=== PATIENT | male | born 1975 | race Caucasian/White ===

== ENCOUNTER 2019-03-12 07:22 | Inpatient (IN) | payer OTHER ==
[~2019-03-12] VITALS: Ht 177.8 cm; Wt 77.4 kg
--- NOTE | 2019-03-12 07:48 | NUR ---
PT HERE FOR SOB AND LEFT CHEST WALL PAIN. IV ACCESS OBTAINED. NS BOLUS INITIATED, CARDIAC, NIBP, AND O2 MONITORING IN PLACE. PT PLACED ON 2 LPM O2 VIA NC FOR RA OF 89%
[2019-03-12] MEDS ORDERED: SODIUM CHLORIDE 0.9% 1,000ML IVBOLUS ONE (08:00)
[2019-03-12] MEDS ORDERED: SODIUM CHLORIDE FLUSH 10ML SYR IVF ONE (08:00)
[2019-03-12] MEDS ORDERED: KETOROLAC 60 MG/2 ML ONE ×2 (08:07→10:22)
[2019-03-12] MEDS ORDERED: CEFTRIAXONE PMX 1GM/50ML 50 ML ONE (08:18)
[2019-03-12 08:21] LABS: RAPID INFLUENZA A Negative (Negative); RAPID INFLUENZA B Negative (Negative)
[2019-03-12] MEDS ORDERED: CEFTRIAXONE PMX 1GM/50ML 50 ML IVPB ONE (08:30)
[2019-03-12] MEDS ORDERED: AZITHROMYCIN 500 MG in SODIUM CHLORIDE 0.9% 250 ML IVPB ONE (08:30)
[2019-03-12] MEDS ORDERED: KETOROLAC 30 MG/1 ML IVPush ONE (08:30)
[2019-03-12 08:53] LABS: MEAN CORPUSCULAR HEMOGLOBIN 31.9 pg (27.5-34.5); MEAN CORPUSCULAR HGB CONC 32.9 g/dL (33.2-36.2); MEAN CORPUSCULAR VOLUME 96.8 fL (81-97); MEAN PLATELET VOLUME 8.3 fL (7.4-10.4); PLATELET COUNT 276 x10^3/uL (130-400); RED BLOOD COUNT 4.89 x10^6/uL (4.38-5.82); RED CELL DISTRIBUTION WIDTH 13.5 % (9.4-14.8)
[2019-03-12 09:00] LABS: ALANINE AMINOTRANSFERASE 31 U/L (12-78); ALBUMIN 2.6 g/dL (3.4-5.0); ANION GAP 9 mmol/L (5-15); CALCIUM 8.7 mg/dL (8.5-10.1); CHLORIDE 102 mmol/L (98-107); CREATININE 1.05 mg/dL (0.7-1.3)
[2019-03-12 09:05] LABS: ALKALINE PHOSPHATASE 100 U/L (45-117); TOTAL PROTEIN 7.4 g/dL (6.4-8.2)
[2019-03-12 09:08] LABS: TROPONIN I 0.839 ng/mL (0.000-0.045)
--- NOTE | 2019-03-12 09:08 | NUR ---
LAB CALLED HIGH TROP OF 0.839 PROVIDER MADE AWARE.
[2019-03-12 09:28] LABS: MD YES
[2019-03-12 09:30] LABS: LYMPH#(MANUAL) 0.68 x10^3/uL (1-3.4); LYMPHS% (MANUAL) 4 % (22-44); MONOS#(MANUAL) 0.51 x10^3/uL (0.3-2.7); MONOS% (MANUAL) 3 % (2-9)
[2019-03-12 09:33] LABS: BAND#(MANUAL) 5.78 x10^3/uL; BANDS%(MANUAL) 34 % (0-7); SEGS% (MANUAL) 59 % (42-75)
[2019-03-12 09:39] LABS: <PLATELET ESTIMATE> ADEQUATE; <PLT MORPHOLOGY> NORMAL PLT MORPH; <RBC MORPHOLOGY> NORMAL; TOXIC GRAN 1+
[2019-03-12] MEDS ORDERED: SODIUM CHLORIDE 0.9% 1,000 ML IV SCH (09:45)
[2019-03-12] MEDS ORDERED: TEMAZEPAM 15 MG CAPSULE PO PRN (10:00)
[2019-03-12] MEDS ORDERED: HYDROcodone/APAP 5/325 TABLET PO PRN (10:00)
[2019-03-12] MEDS ORDERED: ACETAMINOPHEN 325 MG TABLET PO PRN (10:00)
[2019-03-12] MEDS ORDERED: ONDANSETRON 2MG/ML, 2ML IVPush PRN (10:00)
[2019-03-12] MEDS ORDERED: AZITHROMYCIN 500 MG in SODIUM CHLORIDE 0.9% 250 ML IV SCH (10:00)
[2019-03-12] MEDS ORDERED: SODIUM CHLORIDE FLUSH 10ML SYR IVF PRN (10:00)
[2019-03-12] MEDS ORDERED: hydrALAzine 20 MG/ML, 1ML IVPush PRN (10:00)
[2019-03-12] MEDS ORDERED: ENOXAPARIN 40 MG/0.4 ML SQ SCH (10:00)
[2019-03-12] MEDS: KETOROLAC 30 MG/1 ML IV SCH ×3 (10:38→22:45)
--- NOTE | 2019-03-12 11:57 | NUR ---
PT TRANSFERING TO FLOOR.
[2019-03-12 12:43] VITALS: BP 141/91
[2019-03-12] MEDS ORDERED: DIGOXIN 0.25 MG/ML, 2ML IVPush ONE ×3 (13:00→22:30)
[2019-03-12] MEDS: GUAIFENESIN 200 MG TABLET PO SCH ×3 (13:47→20:36)
[2019-03-12 14:37] LABS: TROPONIN I 0.813 ng/mL (0.000-0.045)
[2019-03-12 19:55] LABS: AMPHETAMINE SCREEN, URINE Negative (Negative); BARBITURATE SCREEN, URINE Negative (Negative); BENZODIAZEPINE SCREEN, URINE Negative (Negative); CANNABINOID SCREEN, URINE Negative (Negative); COCAINE SCREEN, URINE Negative (Negative); METHADONE SCREEN, URINE Negative (Negative); OPIATE SCREEN, URINE Negative (Negative)
[2019-03-12 20:02] LABS: TROPONIN I 0.816 ng/mL (0.000-0.045)
[2019-03-12 21:46] VITALS: BP 164/96
[2019-03-13] MEDS ORDERED: OMNIPAQUE 350 MG/ML, 100ML BOTTLE ONE (00:03)
[2019-03-13 00:29] VITALS: BP 122/75
[2019-03-13] MEDS: KETOROLAC 30 MG/1 ML IV SCH (04:22)
[2019-03-13] MEDS ORDERED: KETOROLAC 30 MG/1 ML IV PRN (05:00)
[2019-03-13 06:55] LABS: MEAN CORPUSCULAR HEMOGLOBIN 32.4 pg (27.5-34.5); MEAN CORPUSCULAR HGB CONC 32.8 g/dL (33.2-36.2); MEAN CORPUSCULAR VOLUME 98.9 fL (81-97); PLATELET COUNT 278 x10^3/uL (130-400); RED BLOOD COUNT 4.77 x10^6/uL (4.38-5.82)
[2019-03-13 07:07] LABS: ALANINE AMINOTRANSFERASE 22 U/L (12-78); ANION GAP 8 mmol/L (5-15); CALCIUM 8.7 mg/dL (8.5-10.1); CHLORIDE 106 mmol/L (98-107); CREATININE 0.92 mg/dL (0.7-1.3)
[2019-03-13 07:25] LABS: ALKALINE PHOSPHATASE 70 U/L (45-117); BILIRUBIN,TOTAL 0.8 mg/dL (0.2-1.0)
[2019-03-13 07:36] LABS: MD YES
[2019-03-13 07:39] LABS: <PLATELET ESTIMATE> ADEQUATE; <PLT MORPHOLOGY> NORMAL PLT MORPH; <RBC MORPHOLOGY> NORMAL; BAND#(MANUAL) 9.61 x10^3/uL; BANDS%(MANUAL) 36 % (0-7); EOS#(MANUAL) 0.27 x10^3/uL (0.0-0.4); EOS% (MANUAL) 1 % (1-7); LYMPH#(MANUAL) 0.53 x10^3/uL (1-3.4); LYMPHS% (MANUAL) 2 % (22-44); METAMYELOCYTES# (MANUAL) 1.07 x10^3/uL (0-0); METAMYELOCYTES% (MANUAL) 4 % (0-1); MONOS#(MANUAL) 0.27 x10^3/uL (0.3-2.7); MONOS% (MANUAL) 1 % (2-9); SEG#(MANUAL) 14.95 x10^3/uL (1.8-6.8); SEGS% (MANUAL) 56 % (42-75); TOXIC GRAN 1+
[2019-03-13 07:40] VITALS: BP 138/80
[2019-03-13] MEDS: CEFTRIAXONE PMX 2GM/50ML 50 ML IV SCH (09:37)
[2019-03-13] MEDS: GUAIFENESIN 200 MG TABLET PO SCH ×3 (09:37→20:29)
[2019-03-13] MEDS ORDERED: SODIUM CHLORIDE 0.9% 1,000 ML IV SCH (09:45)
[2019-03-13] MEDS ORDERED: HEPARIN 5,000 UNITS/ML, 1ML IV ONE (10:30)
[2019-03-13] MEDS: ALBUTEROL SULFATE 2.5 MG/3 ML NPPB PRN (11:45)
[2019-03-13] MEDS: ACETAMINOPHEN 325 MG TABLET PO PRN ×3 (12:05→23:30)
[2019-03-13] MEDS: HEPARIN 25,000 UNITS/500ML PMX 500 ML IV PRN (12:55)
[2019-03-13 15:36] VITALS: BP 144/85
[2019-03-13 18:27] VITALS: BP 150/102
[2019-03-13] MEDS: CARVEDILOL 6.25 MG TABLET PO SCH (18:30)
[2019-03-13 19:57] VITALS: BP 156/95
[2019-03-13] MEDS: ATORVASTATIN 40 MG TABLET PO SCH (20:29)
[2019-03-13] MEDS: HEPARIN 5,000 UNITS/ML, 1ML IV PRN (20:29)
[2019-03-13 20:42] VITALS: BP 163/98
[2019-03-14 02:33] VITALS: BP 158/98
[2019-03-14 02:52] LABS: MEAN CORPUSCULAR HEMOGLOBIN 32.7 pg (27.5-34.5); MEAN CORPUSCULAR HGB CONC 33.3 g/dL (33.2-36.2); MEAN CORPUSCULAR VOLUME 98.2 fL (81-97); MEAN PLATELET VOLUME 8.4 fL (7.4-10.4); PLATELET COUNT 291 x10^3/uL (130-400); RED BLOOD COUNT 4.55 x10^6/uL (4.38-5.82); RED CELL DISTRIBUTION WIDTH 13.9 % (9.4-14.8)
[2019-03-14 02:59] LABS: MD YES
[2019-03-14 03:01] LABS: ANION GAP 8 mmol/L (5-15); CALCIUM 8.8 mg/dL (8.5-10.1); CHLORIDE 105 mmol/L (98-107)
[2019-03-14 03:04] LABS: TROPONIN I 0.324 ng/mL (0.000-0.045)
[2019-03-14 03:04] LABS: <PLATELET ESTIMATE> ADEQUATE; <PLT MORPHOLOGY> NORMAL PLT MORPH; <RBC MORPHOLOGY> NORMAL; BAND#(MANUAL) 5.46 x10^3/uL; BANDS%(MANUAL) 15 % (0-7); LYMPH#(MANUAL) 1.09 x10^3/uL (1-3.4); LYMPHS% (MANUAL) 3 % (22-44); METAMYELOCYTES# (MANUAL) 0.73 x10^3/uL (0-0); METAMYELOCYTES% (MANUAL) 2 % (0-1); MONOS#(MANUAL) 1.09 x10^3/uL (0.3-2.7); MONOS% (MANUAL) 3 % (2-9); SEG#(MANUAL) 28.03 x10^3/uL (1.8-6.8); SEGS% (MANUAL) 77 % (42-75)
[2019-03-14 03:05] LABS: PMNS WITH VACUOLES 1+; TOXIC GRAN 1+
[2019-03-14] MEDS: HEPARIN 5,000 UNITS/ML, 1ML IV PRN ×3 (03:13→19:14)
[2019-03-14] MEDS: CARVEDILOL 6.25 MG TABLET PO SCH ×2 (05:26→17:21)
[2019-03-14] MEDS ORDERED: ASPIRIN 325 MG TABLET PO SCH (06:00)
[2019-03-14 07:26] VITALS: BP 135/80
[2019-03-14] MEDS: CEFTRIAXONE PMX 2GM/50ML 50 ML IV SCH (09:22)
[2019-03-14] MEDS: GUAIFENESIN 200 MG TABLET PO SCH ×3 (09:22→20:01)
[2019-03-14] MEDS: SODIUM CHLORIDE 0.9% 1,000 ML IV SCH (09:27)
[2019-03-14] MEDS ORDERED: SODIUM CHLORIDE 0.9% 1,000 ML IV SCH (09:45)
[2019-03-14] MEDS ORDERED: VANCOMYCIN PER PHARMACY MC PRN (11:30)
[2019-03-14] MEDS ORDERED: PHARMACOKINETIC CONSULTATION MC ONE (12:00)
[2019-03-14] MEDS ORDERED: PHARMACOKINETIC MONITORING MC PRN (12:00)
[2019-03-14 12:25] VITALS: BP 123/78
[2019-03-14] MEDS: VANCOMYCIN 1,500 MG in SODIUM CHLORIDE 0.9% 250 ML IV SCH (12:53)
[2019-03-14] MEDS: ACETAMINOPHEN 325 MG TABLET PO PRN (12:53)
[2019-03-14] MEDS: ALBUTEROL SULFATE 2.5 MG/3 ML NPPB PRN (13:11)
[2019-03-14] MEDS: HEPARIN 25,000 UNITS/500ML PMX 500 ML IV PRN (13:14)
[2019-03-14] MEDS ORDERED: DIGOXIN 0.25 MG TABLET PO SCH (13:30)
[2019-03-14 14:28] VITALS: BP 110/75
[2019-03-14] MEDS ORDERED: LIDOCAINE 1%, 10ML ONE (15:12)
[2019-03-14] MEDS: ATORVASTATIN 40 MG TABLET PO SCH (20:01)
[2019-03-14 20:55] VITALS: BP 159/95
[2019-03-14] MEDS ORDERED: AZITHROMYCIN 500 MG TABLET PO ONE (23:00)
[2019-03-15] MEDS: VANCOMYCIN 1,500 MG in SODIUM CHLORIDE 0.9% 250 ML IV SCH ×2 (00:47→13:34)
[2019-03-15 00:51] VITALS: BP 147/84
[2019-03-15] MEDS: CARVEDILOL 6.25 MG TABLET PO SCH ×2 (05:02→17:35)
[2019-03-15] MEDS: SODIUM CHLORIDE 0.9% 1,000 ML IV SCH (05:02)
[2019-03-15 05:32] LABS: MEAN CORPUSCULAR HEMOGLOBIN 32.1 pg (27.5-34.5); MEAN CORPUSCULAR HGB CONC 33.1 g/dL (33.2-36.2); MEAN CORPUSCULAR VOLUME 97.2 fL (81-97); MEAN PLATELET VOLUME 8.9 fL (7.4-10.4); PLATELET COUNT 348 x10^3/uL (130-400); RED BLOOD COUNT 4.48 x10^6/uL (4.38-5.82); RED CELL DISTRIBUTION WIDTH 14.4 % (9.4-14.8)
[2019-03-15 06:07] LABS: MD YES
[2019-03-15 06:09] LABS: BAND#(MANUAL) 1.38 x10^3/uL; BANDS%(MANUAL) 5 % (0-7); LYMPHS% (MANUAL) 8 % (22-44); MONOS#(MANUAL) 0.55 x10^3/uL (0.3-2.7); MONOS% (MANUAL) 2 % (2-9); MYELOCYTES# (MANUAL) 0.28 x10^3/uL (0-0); MYELOCYTES% (MANUAL) 1 % (0-0); SEGS% (MANUAL) 84 % (42-75)
[2019-03-15 06:10] LABS: <PLATELET ESTIMATE> ADEQUATE; <PLT MORPHOLOGY> NORMAL PLT MORPH; <RBC MORPHOLOGY> NORMAL
[2019-03-15] MEDS ORDERED: FUROSEMIDE 20 MG/2 ML IV ONE (07:00)
[2019-03-15 07:05] VITALS: BP 109/68
[2019-03-15 07:38] LABS: TROPONIN I 0.071 ng/mL (0.000-0.045)
[2019-03-15] MEDS: CEFTRIAXONE PMX 2GM/50ML 50 ML IV SCH (07:40)
[2019-03-15] MEDS ORDERED: LIDOCAINE 1%, 10ML ONE (08:52)
[2019-03-15] MEDS: GUAIFENESIN 200 MG TABLET PO SCH ×3 (09:44→20:17)
[2019-03-15 12:44] VITALS: BP 114/73
[2019-03-15] MEDS ORDERED: HEPARIN 5,000 UNITS/ML, 1ML IV ONE (15:30)
[2019-03-15] MEDS: AZITHROMYCIN 250 MG TABLET PO SCH (18:00)
[2019-03-15 19:51] VITALS: BP 121/68
[2019-03-15] MEDS: ATORVASTATIN 40 MG TABLET PO SCH (20:16)
[2019-03-15] MEDS: HEPARIN 5,000 UNITS/ML, 1ML IV PRN (23:05)
[2019-03-16 01:27] VITALS: BP 113/65
[2019-03-16] MEDS: VANCOMYCIN 1,500 MG in SODIUM CHLORIDE 0.9% 250 ML IV SCH (01:47)
[2019-03-16] MEDS: HEPARIN 25,000 UNITS/500ML PMX 500 ML IV PRN ×2 (01:50→12:51)
[2019-03-16 05:25] LABS: MEAN CORPUSCULAR HEMOGLOBIN 32.4 pg (27.5-34.5); MEAN CORPUSCULAR HGB CONC 33.1 g/dL (33.2-36.2); MEAN PLATELET VOLUME 8.8 fL (7.4-10.4); PLATELET COUNT 369 x10^3/uL (130-400); RED BLOOD COUNT 4.15 x10^6/uL (4.38-5.82); RED CELL DISTRIBUTION WIDTH 14.4 % (9.4-14.8)
[2019-03-16 05:55] VITALS: BP 107/63
[2019-03-16] MEDS: CARVEDILOL 6.25 MG TABLET PO SCH ×2 (05:55→17:31)
[2019-03-16] MEDS: HEPARIN 5,000 UNITS/ML, 1ML IV PRN ×3 (05:55→21:00)
[2019-03-16 06:11] LABS: MD YES
[2019-03-16 06:12] LABS: BAND#(MANUAL) 0.44 x10^3/uL; BANDS%(MANUAL) 2 % (0-7); LYMPH#(MANUAL) 1.55 x10^3/uL (1-3.4); LYMPHS% (MANUAL) 7 % (22-44); MONOS#(MANUAL) 0.66 x10^3/uL (0.3-2.7); MONOS% (MANUAL) 3 % (2-9); SEG#(MANUAL) 19.45 x10^3/uL (1.8-6.8); SEGS% (MANUAL) 88 % (42-75)
[2019-03-16 06:13] LABS: <RBC MORPHOLOGY> NORMAL; PMNS WITH VACUOLES 1+; TOXIC GRAN 1+
[2019-03-16 06:14] LABS: <PLATELET ESTIMATE> ADEQUATE; <PLT MORPHOLOGY> NORMAL PLT MORPH
[2019-03-16 07:10] VITALS: BP 101/61
[2019-03-16] MEDS: GUAIFENESIN 200 MG TABLET PO SCH ×3 (09:04→21:01)
[2019-03-16] MEDS: AZITHROMYCIN 250 MG TABLET PO SCH (09:04)
[2019-03-16] MEDS: CEFTRIAXONE PMX 2GM/50ML 50 ML IV SCH (09:04)
[2019-03-16 12:09] VITALS: BP 120/79
[2019-03-16 19:05] VITALS: BP 118/72
[2019-03-16] MEDS: ATORVASTATIN 40 MG TABLET PO SCH (21:00)
[2019-03-17] VITALS: BP 124/78
[2019-03-17 05:18] VITALS: BP 109/63
[2019-03-17] MEDS: CARVEDILOL 6.25 MG TABLET PO SCH ×2 (05:20→17:18)
[2019-03-17 06:14] LABS: INTERNATIONAL NORMALIZED RATIO 1.11 (0.93-1.1); PROTHROMBIN TIME 11.6 Seconds (9.6-11.5)
[2019-03-17 06:26] LABS: MEAN CORPUSCULAR HEMOGLOBIN 32.8 pg (27.5-34.5); MEAN CORPUSCULAR HGB CONC 33.4 g/dL (33.2-36.2); MEAN CORPUSCULAR VOLUME 98.1 fL (81-97); MEAN PLATELET VOLUME 9.1 fL (7.4-10.4); PLATELET COUNT 467 x10^3/uL (130-400); RED BLOOD COUNT 4.09 x10^6/uL (4.38-5.82); RED CELL DISTRIBUTION WIDTH 14.5 % (9.4-14.8)
[2019-03-17 07:03] LABS: MD YES
[2019-03-17 07:04] LABS: BAND#(MANUAL) 1.03 x10^3/uL; BANDS%(MANUAL) 4 % (0-7); EOS#(MANUAL) 0.26 x10^3/uL (0.0-0.4); EOS% (MANUAL) 1 % (1-7); LYMPH#(MANUAL) 1.03 x10^3/uL (1-3.4); LYMPHS% (MANUAL) 4 % (22-44); MONOS#(MANUAL) 1.81 x10^3/uL (0.3-2.7); MONOS% (MANUAL) 7 % (2-9); SEG#(MANUAL) 21.67 x10^3/uL (1.8-6.8); SEGS% (MANUAL) 84 % (42-75)
[2019-03-17 07:05] LABS: <PLATELET ESTIMATE> INCREASED; <PLT MORPHOLOGY> NORMAL PLT MORPH; <RBC MORPHOLOGY> NORMAL; PMNS WITH VACUOLES 1+; TOXIC GRAN 1+
[2019-03-17 07:18] VITALS: BP 107/62
[2019-03-17] MEDS: GUAIFENESIN 200 MG TABLET PO SCH ×3 (07:44→19:53)
[2019-03-17] MEDS: AZITHROMYCIN 250 MG TABLET PO SCH (07:44)
[2019-03-17] MEDS: CEFTRIAXONE PMX 2GM/50ML 50 ML IV SCH (07:44)
[2019-03-17] MEDS ORDERED: LIDOCAINE GEL 2%, 5ML ONE (08:00)
[2019-03-17] MEDS ORDERED: BENZOCAINE 20% SPRAY 0.5ML ONE (08:00)
[2019-03-17] MEDS ORDERED: LIDOCAINE 2%, 20ML ONE (08:00)
[2019-03-17] MEDS ORDERED: MIDAZOLAM 1 MG/ML, 5ML ONE (13:04)
[2019-03-17] MEDS ORDERED: FENTANYL PF 100 MCG/2ML ONE (13:04)
[2019-03-17 14:51] VITALS: BP 125/72
[2019-03-17 17:16] VITALS: BP 109/66
[2019-03-17 19:15] VITALS: BP 108/67
[2019-03-17] MEDS: ATORVASTATIN 40 MG TABLET PO SCH (19:54)
[2019-03-17] MEDS: ACETAMINOPHEN 325 MG TABLET PO PRN (19:54)
[2019-03-18 01:23] VITALS: BP 100/61
[2019-03-18] MEDS: CARVEDILOL 6.25 MG TABLET PO SCH ×2 (05:52→18:07)
[2019-03-18 06:11] LABS: MEAN CORPUSCULAR HGB CONC 32.3 g/dL (33.2-36.2); MEAN CORPUSCULAR VOLUME 99.3 fL (81-97); PLATELET COUNT 460 x10^3/uL (130-400); RED CELL DISTRIBUTION WIDTH 14.7 % (9.4-14.8)
[2019-03-18 06:26] LABS: ANION GAP 5 mmol/L (5-15); CALCIUM 8.1 mg/dL (8.5-10.1); CHLORIDE 99 mmol/L (98-107)
[2019-03-18 06:28] LABS: CREATININE 0.76 mg/dL (0.7-1.3)
[2019-03-18 07:03] LABS: MD YES
[2019-03-18 07:04] LABS: BAND#(MANUAL) 0.53 x10^3/uL; BANDS%(MANUAL) 2 % (0-7); EOS#(MANUAL) 0.26 x10^3/uL (0.0-0.4); EOS% (MANUAL) 1 % (1-7); LYMPH#(MANUAL) 1.06 x10^3/uL (1-3.4); LYMPHS% (MANUAL) 4 % (22-44); METAMYELOCYTES# (MANUAL) 0.26 x10^3/uL (0-0); METAMYELOCYTES% (MANUAL) 1 % (0-1); MONOS#(MANUAL) 1.32 x10^3/uL (0.3-2.7); MONOS% (MANUAL) 5 % (2-9); MYELOCYTES# (MANUAL) 0.53 x10^3/uL (0-0); MYELOCYTES% (MANUAL) 2 % (0-0); SEG#(MANUAL) 22.44 x10^3/uL (1.8-6.8); SEGS% (MANUAL) 85 % (42-75)
[2019-03-18 07:05] LABS: <PLATELET ESTIMATE> INCREASED; <PLT MORPHOLOGY> NORMAL PLT MORPH; POLYCHROMASIA 1+
[2019-03-18 08:00] VITALS: BP 122/77
[2019-03-18] MEDS: GUAIFENESIN 200 MG TABLET PO SCH ×3 (08:21→21:06)
[2019-03-18] MEDS: CEFTRIAXONE PMX 2GM/50ML 50 ML IV SCH (08:21)
[2019-03-18] MEDS: AZITHROMYCIN 250 MG TABLET PO SCH (08:21)
[2019-03-18 14:57] VITALS: BP 115/66
[2019-03-18] MEDS: ACETAMINOPHEN 325 MG TABLET PO PRN (15:10)
[2019-03-18 19:45] VITALS: BP 118/72
[2019-03-18] MEDS ORDERED: HEPARIN 5,000 UNITS/ML, 1ML IV ONE (21:00)
[2019-03-18] MEDS: HEPARIN 25,000 UNITS/500ML PMX 500 ML IV PRN (21:04)
[2019-03-18] MEDS: ATORVASTATIN 40 MG TABLET PO SCH (21:10)
[2019-03-19 01:08] VITALS: BP 127/77
[2019-03-19 03:21] LABS: MEAN CORPUSCULAR HEMOGLOBIN 32.5 pg (27.5-34.5); MEAN CORPUSCULAR VOLUME 98.5 fL (81-97); MEAN PLATELET VOLUME 8.6 fL (7.4-10.4); PLATELET COUNT 641 x10^3/uL (130-400); RED CELL DISTRIBUTION WIDTH 14.3 % (9.4-14.8)
[2019-03-19] MEDS: HEPARIN 5,000 UNITS/ML, 1ML IV PRN ×2 (03:51→10:33)
[2019-03-19 04:06] LABS: MD YES
[2019-03-19 04:07] LABS: BAND#(MANUAL) 0.58 x10^3/uL; BANDS%(MANUAL) 2 % (0-7); LYMPH#(MANUAL) 1.15 x10^3/uL (1-3.4); LYMPHS% (MANUAL) 4 % (22-44); METAMYELOCYTES# (MANUAL) 0.29 x10^3/uL (0-0); METAMYELOCYTES% (MANUAL) 1 % (0-1); MONOS#(MANUAL) 0.86 x10^3/uL (0.3-2.7); MONOS% (MANUAL) 3 % (2-9); SEG#(MANUAL) 25.92 x10^3/uL (1.8-6.8); SEGS% (MANUAL) 90 % (42-75)
[2019-03-19 04:10] LABS: ANISOCYTOSIS 1+
[2019-03-19 04:11] LABS: <PLATELET ESTIMATE> INCREASED; <PLT MORPHOLOGY> NORMAL PLT MORPH; PMNS WITH VACUOLES 1+; TOXIC GRAN 1+
[2019-03-19] MEDS: CARVEDILOL 6.25 MG TABLET PO SCH ×2 (06:10→17:02)
[2019-03-19 08:04] VITALS: BP 97/61
[2019-03-19] MEDS: GUAIFENESIN 200 MG TABLET PO SCH ×3 (08:41→20:40)
[2019-03-19] MEDS: CEFTRIAXONE PMX 2GM/50ML 50 ML IV SCH (08:41)
[2019-03-19 12:54] VITALS: BP 111/70
[2019-03-19 19:31] VITALS: BP 122/78
[2019-03-19] MEDS: ATORVASTATIN 40 MG TABLET PO SCH (20:41)
[2019-03-20 01:42] VITALS: BP 107/69
[2019-03-20] MEDS: CARVEDILOL 6.25 MG TABLET PO SCH ×2 (06:22→17:25)
[2019-03-20] MEDS: ASPIRIN 81 MG TABLET EC PO SCH (06:22)
[2019-03-20 07:20] VITALS: BP 114/73
[2019-03-20] MEDS: CEFTRIAXONE PMX 2GM/50ML 50 ML IV SCH (08:48)
[2019-03-20] MEDS: GUAIFENESIN 200 MG TABLET PO SCH ×3 (08:49→20:28)
[2019-03-20 13:03] VITALS: BP 135/85
[2019-03-20 19:35] VITALS: BP 119/74
[2019-03-20] MEDS: ATORVASTATIN 40 MG TABLET PO SCH (20:28)
[2019-03-21 02:05] VITALS: BP 122/77
[2019-03-21 05:21] VITALS: BP 109/72
[2019-03-21] MEDS: ASPIRIN 81 MG TABLET EC PO SCH (05:22)
[2019-03-21] MEDS: CARVEDILOL 6.25 MG TABLET PO SCH ×2 (05:23→18:31)
[2019-03-21 06:19] LABS: MEAN CORPUSCULAR HEMOGLOBIN 32.3 pg (27.5-34.5); MEAN CORPUSCULAR HGB CONC 32.7 g/dL (33.2-36.2); MEAN CORPUSCULAR VOLUME 98.7 fL (81-97); MEAN PLATELET VOLUME 8.4 fL (7.4-10.4); PLATELET COUNT 792 x10^3/uL (130-400); RED BLOOD COUNT 4.18 x10^6/uL (4.38-5.82); RED CELL DISTRIBUTION WIDTH 14.2 % (9.4-14.8)
[2019-03-21 06:42] LABS: MD YES
[2019-03-21 06:43] LABS: BAND#(MANUAL) 0.22 x10^3/uL; BANDS%(MANUAL) 1 % (0-7); LYMPH#(MANUAL) 1.53 x10^3/uL (1-3.4); LYMPHS% (MANUAL) 7 % (22-44); METAMYELOCYTES# (MANUAL) 0.22 x10^3/uL (0-0); METAMYELOCYTES% (MANUAL) 1 % (0-1); MONOS#(MANUAL) 1.75 x10^3/uL (0.3-2.7); MONOS% (MANUAL) 8 % (2-9); MYELOCYTES# (MANUAL) 0.22 x10^3/uL (0-0); MYELOCYTES% (MANUAL) 1 % (0-0); SEG#(MANUAL) 17.96 x10^3/uL (1.8-6.8); SEGS% (MANUAL) 82 % (42-75)
[2019-03-21 06:45] LABS: <PLATELET ESTIMATE> INCREASED; <PLT MORPHOLOGY> NORMAL PLT MORPH
[2019-03-21 07:09] VITALS: BP 117/74
[2019-03-21] MEDS: CEFTRIAXONE PMX 2GM/50ML 50 ML IV SCH (08:05)
[2019-03-21] MEDS: GUAIFENESIN 200 MG TABLET PO SCH ×3 (08:06→20:19)
[2019-03-21] MEDS: ENOXAPARIN 40 MG/0.4 ML SQ SCH (08:07)
[2019-03-21 12:45] VITALS: BP 106/71
[2019-03-21 18:36] VITALS: BP 119/76
[2019-03-21] MEDS: ATORVASTATIN 40 MG TABLET PO SCH (20:20)
[2019-03-21 20:23] VITALS: BP 112/69
[2019-03-22 01:54] VITALS: BP 112/73
[2019-03-22 05:56] LABS: MEAN CORPUSCULAR HEMOGLOBIN 31.8 pg (27.5-34.5); MEAN CORPUSCULAR HGB CONC 31.9 g/dL (33.2-36.2); MEAN CORPUSCULAR VOLUME 99.6 fL (81-97); MEAN PLATELET VOLUME 8.3 fL (7.4-10.4); PLATELET COUNT 885 x10^3/uL (130-400); RED BLOOD COUNT 4.11 x10^6/uL (4.38-5.82); RED CELL DISTRIBUTION WIDTH 14.3 % (9.4-14.8)
[2019-03-22 06:08] LABS: ANION GAP 4 mmol/L (5-15); CALCIUM 8.5 mg/dL (8.5-10.1); CHLORIDE 100 mmol/L (98-107); CREATININE 0.82 mg/dL (0.7-1.3)
[2019-03-22 06:10] VITALS: BP 112/69
[2019-03-22] MEDS: CARVEDILOL 6.25 MG TABLET PO SCH ×2 (06:11→17:28)
[2019-03-22] MEDS: ASPIRIN 81 MG TABLET EC PO SCH (06:11)
[2019-03-22 06:18] LABS: MD YES
[2019-03-22 06:20] LABS: BAND#(MANUAL) 1.55 x10^3/uL; BANDS%(MANUAL) 8 % (0-7); EOS#(MANUAL) 0.19 x10^3/uL (0.0-0.4); EOS% (MANUAL) 1 % (1-7); LYMPH#(MANUAL) 1.16 x10^3/uL (1-3.4); LYMPHS% (MANUAL) 6 % (22-44); METAMYELOCYTES# (MANUAL) 1.16 x10^3/uL (0-0); METAMYELOCYTES% (MANUAL) 6 % (0-1); MONOS#(MANUAL) 1.16 x10^3/uL (0.3-2.7); MONOS% (MANUAL) 6 % (2-9); SEG#(MANUAL) 14.16 x10^3/uL (1.8-6.8); SEGS% (MANUAL) 73 % (42-75)
[2019-03-22 06:21] LABS: <PLATELET ESTIMATE> INCREASED; <PLT MORPHOLOGY> NORMAL PLT MORPH
[2019-03-22] MEDS: GUAIFENESIN 200 MG TABLET PO SCH ×3 (08:28→21:06)
[2019-03-22] MEDS: ENOXAPARIN 40 MG/0.4 ML SQ SCH (08:28)
[2019-03-22] MEDS: CEFTRIAXONE PMX 2GM/50ML 50 ML IV SCH (08:28)
[2019-03-22] MEDS ORDERED: NEOSPORIN OINT, 15GM TP PRN (12:00)
[2019-03-22 12:28] VITALS: BP 119/76
[2019-03-22 17:27] VITALS: BP 114/68
[2019-03-22 20:48] VITALS: BP 120/75
[2019-03-22] MEDS: ATORVASTATIN 40 MG TABLET PO SCH (21:07)
[2019-03-23 02:53] VITALS: BP 109/73
[2019-03-23 05:56] VITALS: BP 112/73
[2019-03-23] MEDS: CARVEDILOL 6.25 MG TABLET PO SCH ×2 (05:57→17:54)
[2019-03-23] MEDS: ASPIRIN 81 MG TABLET EC PO SCH (05:57)
[2019-03-23 06:07] LABS: MEAN CORPUSCULAR HEMOGLOBIN 32.2 pg (27.5-34.5); MEAN CORPUSCULAR HGB CONC 32.7 g/dL (33.2-36.2); MEAN CORPUSCULAR VOLUME 98.3 fL (81-97); RED BLOOD COUNT 4.18 x10^6/uL (4.38-5.82)
[2019-03-23 06:51] VITALS: BP 117/74
[2019-03-23 06:52] LABS: MD YES; MEAN PLATELET VOLUME 7.9 fL (7.4-10.4)
[2019-03-23 06:54] LABS: BANDS%(MANUAL) 4 % (0-7); LYMPH#(MANUAL) 2.01 x10^3/uL (1-3.4); LYMPHS% (MANUAL) 10 % (22-44); METAMYELOCYTES% (MANUAL) 2 % (0-1); MONOS#(MANUAL) 1.81 x10^3/uL (0.3-2.7); MONOS% (MANUAL) 9 % (2-9); MYELOCYTES% (MANUAL) 3 % (0-0); SEG#(MANUAL) 14.47 x10^3/uL (1.8-6.8); SEGS% (MANUAL) 72 % (42-75)
[2019-03-23 06:55] LABS: <PLATELET ESTIMATE> INCREASED
[2019-03-23 06:56] LABS: LARGE PLATELETS 1+
[2019-03-23 06:57] LABS: POLYCHROMASIA 1+
[2019-03-23 07:07] LABS: PLATELET COUNT 1025 x10^3/uL (130-400)
[2019-03-23] MEDS: CEFTRIAXONE PMX 2GM/50ML 50 ML IV SCH (08:08)
[2019-03-23] MEDS: GUAIFENESIN 200 MG TABLET PO SCH ×3 (08:08→20:07)
[2019-03-23] MEDS: ENOXAPARIN 40 MG/0.4 ML SQ SCH (08:11)
[2019-03-23 09:01] LABS: ALBUMIN 1.7 g/dL (3.4-5.0); BILIRUBIN, DIRECT 0.1 mg/dL (0.1-0.2)
[2019-03-23 09:02] LABS: BILIRUBIN,INDIRECT 0.3 mg/dL (0.0-2.0); BILIRUBIN,TOTAL 0.4 mg/dL (0.2-1.0); TOTAL PROTEIN 8.8 g/dL (6.4-8.2)
[2019-03-23] MEDS: ERTAPENEM 1 GM in SODIUM CHLORIDE 0.9% 50 ML IV SCH (12:22)
[2019-03-23 13:41] VITALS: BP 118/3
[2019-03-23 16:53] VITALS: BP 117/77
[2019-03-23 19:58] VITALS: BP 126/79
[2019-03-23] MEDS: ATORVASTATIN 40 MG TABLET PO SCH (20:07)
[2019-03-24 00:33] LABS: MICROSCOPIC NOT IND
[2019-03-24 00:34] LABS: CULTURE INDICATED? NO
[2019-03-24 01:27] VITALS: BP 110/68
[2019-03-24] MEDS: CARVEDILOL 6.25 MG TABLET PO SCH ×2 (06:20→17:39)
[2019-03-24] MEDS: ASPIRIN 81 MG TABLET EC PO SCH (06:20)
[2019-03-24 07:12] LABS: ANION GAP 7 mmol/L (5-15); CALCIUM 8.6 mg/dL (8.5-10.1); CHLORIDE 99 mmol/L (98-107)
[2019-03-24 07:42] LABS: % IRON SATURATION 11 % (20-55); CREATININE 0.75 mg/dL (0.7-1.3); IRON LEVEL 17 mcg/dL (65-175); TOTAL IRON BINDING CAPACITY 156 mcg/dL (250-450)
[2019-03-24 07:44] LABS: MEAN CORPUSCULAR HEMOGLOBIN 32.2 pg (27.5-34.5); MEAN CORPUSCULAR HGB CONC 32.7 g/dL (33.2-36.2); MEAN CORPUSCULAR VOLUME 98.5 fL (81-97); RED BLOOD COUNT 4.02 x10^6/uL (4.38-5.82); RED CELL DISTRIBUTION WIDTH 14.2 % (9.4-14.8)
[2019-03-24 07:56] VITALS: BP 120/74
[2019-03-24] MEDS: GUAIFENESIN 200 MG TABLET PO SCH ×3 (07:57→20:40)
[2019-03-24] MEDS: ENOXAPARIN 40 MG/0.4 ML SQ SCH (07:59)
[2019-03-24 08:35] LABS: MEAN PLATELET VOLUME 7.8 fL (7.4-10.4)
[2019-03-24 08:39] LABS: MD YES; PLATELET COUNT 1047 x10^3/uL (130-400)
[2019-03-24 08:53] LABS: <PLATELET ESTIMATE> INCREASED; BAND#(MANUAL) 0.37 x10^3/uL; BANDS%(MANUAL) 2 % (0-7); BASOS#(MANUAL) 0.18 x10^3/uL (0-0.1); BASOS% (MANUAL) 1 % (0-1); EOS#(MANUAL) 0.37 x10^3/uL (0.0-0.4); EOS% (MANUAL) 2 % (1-7); LARGE PLATELETS 1+; LYMPH#(MANUAL) 0.92 x10^3/uL (1-3.4); LYMPHS% (MANUAL) 5 % (22-44); METAMYELOCYTES# (MANUAL) 0.92 x10^3/uL (0-0); METAMYELOCYTES% (MANUAL) 5 % (0-1); MONOS#(MANUAL) 0.92 x10^3/uL (0.3-2.7); MONOS% (MANUAL) 5 % (2-9); MYELOCYTES# (MANUAL) 0.18 x10^3/uL (0-0); MYELOCYTES% (MANUAL) 1 % (0-0); POLYCHROMASIA 1+; SEG#(MANUAL) 14.46 x10^3/uL (1.8-6.8); SEGS% (MANUAL) 79 % (42-75)
[2019-03-24] MEDS: ERTAPENEM 1 GM in SODIUM CHLORIDE 0.9% 50 ML IV SCH (12:38)
[2019-03-24 16:09] VITALS: BP 123/75
[2019-03-24] MEDS: ATORVASTATIN 40 MG TABLET PO SCH (20:39)
[2019-03-24 21:45] VITALS: BP 120/80
[2019-03-25] MEDS ORDERED: MELATONIN 3 MG TABLET PO PRN (00:30)
[2019-03-25 04:42] VITALS: BP 116/74
[2019-03-25] MEDS: ASPIRIN 81 MG TABLET EC PO SCH (05:39)
[2019-03-25] MEDS: CARVEDILOL 6.25 MG TABLET PO SCH (05:39)
[2019-03-25 06:26] LABS: MEAN CORPUSCULAR HEMOGLOBIN 32.1 pg (27.5-34.5); MEAN CORPUSCULAR VOLUME 97.4 fL (81-97); MEAN PLATELET VOLUME 7.5 fL (7.4-10.4); RED BLOOD COUNT 4.02 x10^6/uL (4.38-5.82)
[2019-03-25 06:29] LABS: PLATELET COUNT 1067 x10^3/uL (130-400)
[2019-03-25 06:58] LABS: MD YES
[2019-03-25 06:59] LABS: BAND#(MANUAL) 0.95 x10^3/uL; BANDS%(MANUAL) 5 % (0-7); EOS#(MANUAL) 0.19 x10^3/uL (0.0-0.4); EOS% (MANUAL) 1 % (1-7); LYMPH#(MANUAL) 1.89 x10^3/uL (1-3.4); LYMPHS% (MANUAL) 10 % (22-44); METAMYELOCYTES# (MANUAL) 0.76 x10^3/uL (0-0); METAMYELOCYTES% (MANUAL) 4 % (0-1); MONOS#(MANUAL) 0.95 x10^3/uL (0.3-2.7); MONOS% (MANUAL) 5 % (2-9); MYELOCYTES# (MANUAL) 0.19 x10^3/uL (0-0); MYELOCYTES% (MANUAL) 1 % (0-0); SEG#(MANUAL) 13.99 x10^3/uL (1.8-6.8); SEGS% (MANUAL) 74 % (42-75)
[2019-03-25 07:00] LABS: <PLATELET ESTIMATE> INCREASED; <PLT MORPHOLOGY> NORMAL PLT MORPH; <RBC MORPHOLOGY> NORMAL
[2019-03-25 07:14] VITALS: BP 111/75
[2019-03-25] MEDS: ENOXAPARIN 40 MG/0.4 ML SQ SCH (08:15)
[2019-03-25] MEDS: GUAIFENESIN 200 MG TABLET PO SCH (08:15)
[2019-03-25] MEDS ORDERED: ATOR40TA78 PO (10:37)
[2019-03-25] MEDS ORDERED: CARV6.2512 PO (10:37)
[2019-03-25] MEDS ORDERED: ASPI81TA45 PO (10:37)
[2019-03-25] MEDS ORDERED: ALBU18HF INH (10:37)
[2019-03-25] MEDS: ERTAPENEM 1 GM in SODIUM CHLORIDE 0.9% 50 ML IV SCH (10:44)
== END 2019-03-25 11:53 | disposition home or self-care (01) | DRG 871 ==
LOC: ED 08:51 → SUATTDRO 09:19 → EDIP 09:38 → 4EST 13:26 → 4WST 03-20 12:53
PROVIDERS: ADMIT Emergency Medicine; ATTEND Internal Medicine
PROC: 0W9B3ZZ Drainage of Left Pleural Cavity, Percutaneous Approach (ICD-10-PCS; 2019-03-15)
PROC: 0BJ08ZZ Inspection of Tracheobronchial Tree, Via Natural or Artificial Opening Endoscopic (ICD-10-PCS; principal; 2019-03-23)
PROC: B5181ZA Fluoroscopy of Superior Vena Cava using Low Osmolar Contrast, Guidance (ICD-10-PCS; 2019-03-23)
PROC: B548ZZA Ultrasonography of Superior Vena Cava, Guidance (ICD-10-PCS; 2019-03-23)
DX: A41.9 Sepsis, unspecified organism (principal); I21.A1 Myocardial infarction type 2; J15.9 Unspecified bacterial pneumonia; J96.01 Acute respiratory failure with hypoxia; J86.9 Pyothorax without fistula; J98.11 Atelectasis; J90 Pleural effusion, not elsewhere classified; J45.909 Unspecified asthma, uncomplicated; Z80.1 Family history of malignant neoplasm of trachea, bronchus and lung; Z87.891 Personal history of nicotine dependence
CPT/HCPCS: 32555; 36415; 36600; 84145; 84155; 87400; 96361; 96365; 96367; 99285; J3490; J7613; 31622; 31624; 36573; 71045; 71046; 71275; 76700; 80048; 80053; 80076; 80162; 80307; 81003; 82607; 82728; 82784; 82803; 83540; 83550; 83605; 83735; 83880; 84100; 84165; 84443; 84484; 85025; 85520; 85610; 86334; 86480; 86632; 86738; 87015; 87040; 87070; 87075; 87081; 87102; 87116; 87205; 87206; 87633; 88112; 88305; 93005; 93306; 94640; 99152; 99153; G0378; J0456; J0696; J1335; J1644; J1650; J1885; J2250; J3010; J3370; Q9967; C1751; J1160; J1940; J7030; J7050

== ENCOUNTER → 2019-04-01 | Outpatient (CLI) | payer OTHER ==
[~2019-04-01] MED LIST: ALBU18HF INH; ASPI81TA45 PO; ATOR40TA78 PO; CARV6.2512 PO
== END | disposition home or self-care (01) ==
LOC: RAD 11:49
PROVIDERS: ATTEND Internal Medicine Infectious Disease
DX: J18.9 Pneumonia, unspecified organism (principal)
CPT/HCPCS: 71046

== ENCOUNTER → 2019-05-10 | Outpatient (CLI) | payer OTHER ==
[~2019-05-10] MED LIST changes: +OMNIPAQUE 350 MG/ML, 75ML BOTTLE ONE
== END | disposition home or self-care (01) ==
LOC: RAD 11:45
PROVIDERS: ATTEND Internal Medicine Infectious Disease
DX: J18.1 Lobar pneumonia, unspecified organism (principal); K76.0 Fatty (change of) liver, not elsewhere classified; J81.1 Chronic pulmonary edema; J91.8 Pleural effusion in other conditions classified elsewhere
CPT/HCPCS: 71260; Q9967